=== PATIENT | male | born 1990 | race Caucasian/White ===

== ENCOUNTER 2020-07-13 15:35 | Emergency (ER) | payer MEDICAID ==
[~2020-07-13] VITALS: Ht 72 cm; Wt 113.6 kg
--- NOTE | 2020-07-13 16:40 | ED General ---
General Chief Complaint: Dizziness/Syncope Stated Complaint: FEELS LIKE LOW HR/ARM AND LEG NUMBNESS Nursing Triage Note: PT HERE DUE TO LIGHT HEADED AND HAS NUMBNESS BACK OF BILATERAL ARMS. HAS BEEN SEEN IN ED FOR TACHYCARDIA CURRENTLY TAKING MEDICATIONS FOR THE INCREASED HEART RATE. Nursing Sepsis Screen: No Definite Risk Source of Information: Patient, Family Exam Limitations: No Limitations History of Present Illness Date Seen by Provider: Jul 13, 2020 Time Seen by Provider: 16:20 Initial Comments Patient is a 29-year-old male who presents to the emergency department today with a chief complaint of feeling lightheaded, paresthesias down the back of his arms and legs, feeling like his pulse is too low. Symptoms have been off and on for several weeks. They restarted last evening and this morning. He has had multiple visits to his primary provider and [facility] emergency department for similar type symptoms. At one point he was diagnosed with a little transient hepatitis with elevated liver functions. He had a transient elevation in his t hyroid functions that he states have resolved. He had a thyroid scan on 11 July and they are pending results. Patient tells me that when he started having issues several weeks ago he stopped drinking alcohol. The patient had drank a sixpack 3 days a week and more on the weekends. He states he does not smoke and quit caffeine completely. He denies any recent fevers, chills, cough or congestion. No chest pain or shortness of breath. Again he states that his heartbeat occasionally feels too slow. When it was feeling too fast and for anxiety apparently he was started on some as needed propranolol. Patient denies any black or tarry stools. No problems with urination. He is lost about 15 pounds in the last 2 weeks since he quit alcohol and caffeine. He was placed on hydrochlorothiazide for elevated blood pressure. He is on a low dose. He had issues with some hyponatremia it seems about 2 weeks ago as well. All other review of systems reviewed and negative except as stated above. Timing/Duration: 1 Week (1 to 2 weeks) Severity: Moderate Associated Systoms: Malaise Allergies and Home Medications Patient Home Medication List Home Medication List Reviewed: Yes Review of Systems Review of Systems Constitutional: see HPI EENTM: no symptoms reported Respiratory: no symptoms reported Cardiovascular: other (Heartbeat "too slow") Gastrointestinal: no symptoms reported Genitourinary: no symptoms reported Musculoskeletal: muscle cramps Skin: no symptoms reported Psychiatric/Neurological: Paresthesia, Weakness (Generalized) Hematologic/Lymphatic: Denies Blood Clots, Denies Easy Bleeding, Denies Easy Bruising All Other Systems Reviewed Negative Unless Noted: Yes Past [id number]-Kmyyia-Hcvcbu Hx Patient Social History Recent Infectious Disease Expo: No Physical Exam Vital Signs Vital Signs - First Documented 07/13/20 15:45 Temp 36.2 Pulse 88 Resp 20 B/P (MAP) 145/92 (109) O2 Delivery Room Air Capillary Refill : Less Than 3 Seconds Height, Weight, BMI Height: '" Weight: lbs. oz. kg; 219.00 BMI Method: General Appearance: No Apparent Distress, WD/WN Eyes: Bilateral Eye Normal Inspection, Bilateral Eye PERRL, Bilateral Eye EOMI HEENT: PERRL/EOMI Neck: Normal Inspection, Non Tender, Supple Respiratory: Lungs Clear, Normal Breath Sounds, No Accessory Muscle Use, No Re spiratory Distress Cardiovascular: Regular Rate, Rhythm, No Murmur Gastrointestinal: Normal Bowel Sounds, Non Tender, Soft Extremity: Normal Inspection, Normal Range of Motion, Non Tender, No Calf Tenderness Neurologic/Psychiatric: Alert, Oriented x3, No Motor/Sensory Deficits, Normal Mood/Affect, retort load expediter II-XII Norm as Tested Skin: Normal Color, Warm/Dry Progress/Results/Core Measures Suspected Sepsis Recent Fever Within 48 Hours: No Infection Criteria Present: None New/Unexplained Altered Menta: No Sepsis Screen: No Definite Risk SIRS Temperature: Pulse: 88 Respiratory Rate: 20 Laboratory Tests 07/13/20 16:45: White Blood Count 5.6 Blood Pressure 145 /92 Mean: 109 Laboratory Tests 07/13/20 16:45: Creatinine 1.06, Platelet Count 371, Total Bilirubin 0.6 Results/Orders Lab Results Laboratory Tests Test 07/13/20 16:45 Range/Units White Blood Count 5.6 4.3-11.0 10^3/uL Red Blood Count 5.32 4.30-5.52 10^6/uL Hemoglobin 16.2 13.3-17.7 g/dL Hematocrit 47 40-54 % Mean Corpuscular Volume 89 80-99 fL Mean Corpuscular Hemoglobin 31 25-34 pg Mean Corpuscular Hemoglobin Concent 34 32-36 g/dL Red Cell Distribution Width 12.4 10.0-14.5 % Platelet Count 371 130-400 10^3/uL Mean Platelet Volume 10.2 9.0-12.2 fL Immature Granulocyte % (Auto) 0 % Neutrophils (%) (Auto) 71 42-75 % Lymphocytes (%) (Auto) 20 12-44 % Monocytes (%) (Auto) 6 0-12 % Eosinophils (%) (Auto) 2 0-10 % Basophils (%) (Auto) 1 0-10 % Neutrophils # (Auto) 4.0 1.8-7.8 X 10^3 Lymphocytes # (Auto) 1.1 1.0-4.0 X 10^3 Monocytes # (Auto) 0.3 0.0-1.0 X 10^3 Eosinophils # (Auto) 0.1 0.0-0.3 10^3/uL Basophils # (Auto) 0.0 0.0-0.1 10^3/uL Immature Granulocyte # (Auto) 0.0 0.0-0.1 10^3/uL Sodium Level 138 135-145 MMOL/L Potassium Level 4.0 3.6-5.0 MMOL/L Chloride Level 106 98-107 MMOL/L Carbon Dioxide Level 22 21-32 MMOL/L Anion Gap 10 5-14 MMOL/L Blood Urea Nitrogen 9 7-18 MG/DL Creatinine 1.06 0.60-1.30 MG/DL Estimat Glomerular Filtration Rate > 60 BUN/Creatinine Ratio 8 Glucose Level 95 70-105 MG/DL Calcium Level 9.3 8.5-10.1 MG/DL Corrected Calcium 9.0 8.5-10.1 MG/DL Total Bilirubin 0.6 0.1-1.0 MG/DL Aspartate Amino Transf (AST/SGOT) 29 5-34 U/L Alanine Aminotransferase (ALT/SGPT) 59 H 0-55 U/L Alkaline Phosphatase 51 40-136 U/L Total Protein 6.9 6.4-8.2 GM/DL Albumin 4.4 3.2-4.5 GM/DL My Orders Orders - NIDHI WANG MD Ekg Tracing (07/13/20 16:35) Cbc With Automated Diff (07/13/20 16:35) Comprehensive Metabolic Panel (07/13/20 16:35) Vital Signs/I&O 07/13/20 15:45 Temp 36.2 Pulse 88 Resp 20 B/P (MAP) 145/92 (109) O2 Delivery Room Air Capillary Refill : Less Than 3 Seconds Blood Pressure Mean: 109 Progress Note : Time: 17:31 Progress Note Patient seen and examined, 29-year-old male with a chief complaint of low heart rate, generalized weakness and paresthesias. Evaluation today includes a physical exam, CBC and Chem-12. Patient had concerns about elevated liver function and low sodium. He was recently put on hydrochlorothiazide. Patient's labs have been reviewed and are completely reassuring with his ALT being the only laboratory abnormality, 4 points above normal range. Patient's vital signs have been stable. As he has been in the emergency department his heart rate has dropped from the mid 80s to the mid 60s. His blood pressure is down to a systolic of 117. I do believe that he has some component of healthcare related anxiety. I do not believe overall that his symptoms however are completely psychosomatic. The patient has gone through a significant detox over the course of the last month off caffeine, sodas, alcohol. He has lost about 15 pounds in the last 2 weeks. I recommended that he eat well and stay well-hydrated. He verbalized understanding. He has close follow-up with his primary care practitioner. He has no clinical or objective findings to warrant further studies from the emergency department at this time. The patient looks well and nontoxic. He will be discharged home to follow-up with his primary care provider. All questions are sought and answered. Patient is stable for discharge. ECG Initial ECG Impression Date: Jul 13, 2020 Initial ECG Impression Time: 16:45 Initial ECG Rate: 72 Initial ECG Rhythm: Normal Sinus Initial ECG Intervals: Normal Initial ECG Impression: Normal, Nonspecific Changes Departure Impression Primary Impression: Paresthesia Disposition: 01 HOME, SELF-CARE Condition: Stable Departure-Patient Inst. Decision time for Depature: 17:34 Referrals: NO,LOCAL PHYSICIAN (PCP/Family) Primary Care Physician Patient Instructions: Paresthesia (DC) Add. Discharge Instructions: Please call and follow-up with your primary care provider. Drink plenty of fluids to stay well-hydrated and follow good nutritional habits. Return to the emergency department if you have racing heartbeat especially associated with sweating, nausea, shortness of breath or any other emergent concerning symptoms. NIDHI WANG MD Jul 13, 2020 16:40
[2020-07-13 16:52] LABS: BASOPHILS % (AUTO) 1 % (0-10); EOSINOPHILS # (AUTO) 0.1 10^3/uL (0.0-0.3); EOSINOPHILS % (AUTO) 2 % (0-10); HEMATOCRIT 47 % (40-54); HEMOGLOBIN 16.2 g/dL (13.3-17.7); LYMPHOCYTES # (AUTO) 1.1 X 10^3 (1.0-4.0); LYMPHOCYTES % (AUTO) 20 % (12-44); MEAN CORPUSCULAR HEMOGLOBIN 31 pg (25-34); MEAN CORPUSCULAR HGB CONC 34 g/dL (32-36); MEAN CORPUSCULAR VOLUME 89 fL (80-99); MEAN PLATELET VOLUME 10.2 fL (9.0-12.2); MONOCYTES # (AUTO) 0.3 X 10^3 (0.0-1.0); MONOCYTES % (AUTO) 6 % (0-12); NEUTROPHILS % (AUTO) 71 % (42-75); PLATELET COUNT 371 10^3/uL (130-400); WHITE BLOOD COUNT 5.6 10^3/uL (4.3-11.0)
[2020-07-13 17:01] LABS: ALBUMIN 4.4 GM/DL (3.2-4.5)
[2020-07-13 17:02] LABS: CHLORIDE 106 MMOL/L (98-107); SODIUM 138 MMOL/L (135-145)
[2020-07-13 17:03] LABS: CALCIUM 9.3 MG/DL (8.5-10.1)
[2020-07-13 17:04] LABS: GLUCOSE 95 MG/DL (70-105); TOTAL PROTEIN 6.9 GM/DL (6.4-8.2)
[2020-07-13 17:05] LABS: CARBON DIOXIDE 22 MMOL/L (21-32)
[2020-07-13 17:06] LABS: BILIRUBIN,TOTAL 0.6 MG/DL (0.1-1.0)
[2020-07-13 17:07] LABS: ALKALINE PHOSPHATASE 51 U/L (40-136)
[2020-07-13 17:08] LABS: CREATININE SERUM 1.06 MG/DL (0.60-1.30); GFR ESTIMATED > 60
[2020-07-13 17:09] LABS: BUN/CREATININE RATIO 8
[2020-07-13 17:11] LABS: ALANINE AMINOTRANSFERASE 59 U/L (0-55)
[2020-07-13 17:45] VITALS: BP 133/87
== END 2020-07-13 17:47 | disposition home or self-care (01) ==
LOC: EDUNIT# 15:35 → ER 15:38
DX: R20.2 Paresthesia of skin (principal); R53.1 Weakness; R03.0 Elevated blood-pressure reading, without diagnosis of hypertension; R00.1 Bradycardia, unspecified
CPT/HCPCS: 36415; 80053; 85025; 93005

== ENCOUNTER → 2020-10-22 | Outpatient (CLI) | payer MEDICAID ==
[2020-10-22] VITALS (20 sets, daily range): BP systolic 106–135; BP diastolic 59–99
[~2020-10-22] MED LIST: NS IV 1000 ML 1,000 ML IV SCH; NS IV 1000 ML 1,000 ML ONE
--- NOTE | 2020-10-22 13:31 | Cardiology Tilt Table Test ---
Cardiology-Tilt Table Test Tilt Table Test Date 10/22/20 Baseline Vitals Vital Signs Date Time Temp Pulse Resp B/P (MAP) Pulse Ox O2 Delivery O2 Flow Rate FiO2 10/22/20 11:36 69 135/73 (93) 100 Room Air Vital Signs VS - Last 72 Hours, by Label 10/22/20 10/22/20 10/22/20 10/22/20 11:36 11:50 11:52 11:53 Pulse 69 93 102 99 B/P (MAP) 135/73 (93) 130/99 (109) 130/91 (104) 124/87 (99) Pulse Ox 100 100 O2 Delivery Room Air 10/22/20 10/22/20 10/22/20 10/22/20 11:53 11:55 11:56 11:58 Pulse 103 99 105 106 B/P (MAP) 125/90 (102) 124/90 (101) 127/90 (102) 10/22/20 10/22/20 10/22/20 10/22/20 11:59 12:01 12:04 12:05 Pulse 103 67 117 147 B/P (MAP) 125/94 (104) 133/76 (95) 114/79 (91) 10/22/20 10/22/20 10/22/20 10/22/20 12:06 12:07 12:08 12:09 Pulse 142 158 151 146 B/P (MAP) 126/69 (88) 123/83 (96) 126/72 (90) 10/22/20 10/22/20 10/22/20 10/22/20 12:10 12:13 12:15 12:16 Pulse 149 141 128 124 B/P (MAP) 124/59 (80) 112/64 (80) 106/64 (78) 113/67 (82) 10/22/20 10/22/20 10/22/20 10/22/20 12:17 12:19 12:22 12:23 Pulse 123 66 48 55 B/P (MAP) 107/70 (82) 125/73 (90) 121/73 (89) 10/22/20 10/22/20 12:26 12:50 Pulse 57 B/P (MAP) 116/73 (87) Patient was tilted to 75 degrees for [10] minutes, then returned to supine position, given [2] sublingual nitroglycerin tablets, then tilted again to 75 degrees for [15] minutes. During test, patient was: symptomatic (with dizziness while HR in the 140-150's during stage 2. Blood pressure remained stable. ) In Conclusion;: Negative Tilt Table Test (Patient had 40 mmHg drop in his blood pressure, the lowest blood pressure was 115/60 with lightheadedness and dizziness but no full syncope, his heart rate was between 140-150 bpm) Instructed to increase fluid and salt intake. F/u in 1-2 months. This is Daniella Lieberman PA-C, as a scribe for Dr. Mon. DANIELLA MARSHALL Oct 22, 2020 13:31 SANDRA MON MD Oct 22, 2020 13:40
== END ==
LOC: CARD 10:30
PROVIDERS: ATTEND Internal Medicine Cardiovascular Disease
DX: R42 Dizziness and giddiness (principal); R55 Syncope and collapse; R00.2 Palpitations
CPT/HCPCS: 93660